=== PATIENT | female | born 1985 | race Caucasian/White ===

== ENCOUNTER 2023-05-08 20:40 | Inpatient (IN) | payer OTHER ==
[2023-05-08 22:40] LABS: BASO % 0.3 % (0-2.0); EOS % 0.9 % (0-4.5); HEMATOCRIT 35.2 % (32.4-45.2); HEMOGLOBIN 11.9 GM/dL (10.7-15.3); LYMPH % 26.5 % (8-40); MCH 29.2 pg (25.7-33.7); MCHC 33.7 g/dl (32.0-36.0); MEAN CELL VOLUME 86.5 fl (80-96); MEAN PLT VOLUME 10.7 fl (7.5-11.1); MONO % 6.4 % (3.8-10.2); NEUT % 65.9 % (42.8-82.8); PLATELET COUNT 251 10^3/uL (134-434); RBC 4.07 M/mm3 (3.60-5.2); RDW 14.2 % (11.6-15.6); WHITE BLOOD COUNT 14.8 K/mm3 (4.0-10.0)
[2023-05-08] MEDS ORDERED: ELECTROLYTE-148 SOLN 1,000 ML IV SCH (22:45)
[2023-05-08] MEDS ORDERED: OXYTOCIN 30 UNITS in 0.9% NS 30 UNIT/500 ML INFUS.BAG IVPB SCH (22:45)
[2023-05-08 22:54] LABS: INR 0.86 (0.83-1.09)
[2023-05-08 22:55] LABS: CALCIUM 8.5 mg/dL (8.5-10.1)
[2023-05-08 22:56] LABS: BLOOD UREA NITROGEN 9.9 mg/dL (7-18)
[2023-05-08 22:57] LABS: ACTIVATED PTT 22.2 SECONDS (25.2-36.5)
[2023-05-08 22:59] LABS: CREATININE 0.7 mg/dL (0.55-1.3)
[2023-05-08] MEDS ORDERED: NALOXONE HCL 0.4 MG/ML VIAL IVPUSH PRN (23:23)
[2023-05-08] MEDS ORDERED: BUPIVACAINE HCL/PF 0.25% (2.5MG/ML) 10 ML VIAL ONE ×2 (23:24→23:56)
[2023-05-08] MEDS ORDERED: FENTANYL CITRATE/PF 50 MCG/ML VIAL ONE (23:24)
[2023-05-08] MEDS ORDERED: FENTANYL/BUPIVACAINE/NS/PF - PCEA - 50 ML DISP.SYRIN EP SCH (23:30)
[2023-05-08] MEDS ORDERED: LIDOCAINE HCL 1% PRESERVATIVE FREE - 30ML VIAL ONE (23:38)
[2023-05-08] MEDS ORDERED: OXYTOCIN 20 UNITS in 0.9% NS 20 UNIT/1,000 ML INFUS.BAG IV ONE (23:38)
[2023-05-08] MEDS ORDERED: FENTANYL/BUPIVACAINE/NS/PF - PCEA - 50 ML DISP.SYRIN EP ONE (23:45)
[2023-05-09] MEDS ORDERED: BENZOCAINE 28 GM HEMORRHOIDAL OINTMENT TP PRN (00:02)
[2023-05-09] MEDS ORDERED: BENZOCAINE 20% 57 GM BOTTLE TP PRN (00:02)
[2023-05-09] MEDS ORDERED: ACETAMINOPHEN 325 MG TABLET (FP) PO PRN (00:02)
[2023-05-09] MEDS ORDERED: WITCH HAZEL 50% (TUCKS) 40 PAD/JAR PAD TP PRN (00:02)
[2023-05-09] MEDS ORDERED: BISACODYL 10 MG SUPP.RECT RC PRN (00:02)
[2023-05-09] MEDS ORDERED: METHYLERGONOVINE MALEATE 0.2 MG/1 ML AMP IM PRN (00:02)
[2023-05-09] MEDS ORDERED: OXYTOCIN 20 UNITS in 0.9% NS 20 UNIT/1,000 ML INFUS.BAG IV SCH (00:15)
[2023-05-09 00:24] VITALS: BMI 34.1
[2023-05-09] MEDS: IBUPROFEN 600 MG TABLET (FP) PO PRN ×5 (04:16→21:35)
[2023-05-09] MEDS ORDERED: FERROUS SO4 325 MG TABLET (FP) PO ONE (08:00)
[2023-05-09] MEDS: PRENATAL VITAMINS W/ FOLIC ACID TABLET (FP) PO SCH (09:35)
[2023-05-09 14:30] LABS: HIV INTERPRETATION NEGATIVE (NEGATIVE)
[2023-05-10] MEDS: oxyCODONE HCL 5 MG TABLET PO PRN ×3 (08:01→21:31)
[2023-05-10] MEDS: PRENATAL VITAMINS W/ FOLIC ACID TABLET (FP) PO SCH (09:11)
[2023-05-10 09:20] LABS: BASO % 0.4 % (0-2.0); EOS % 1.8 % (0-4.5); HEMATOCRIT 34.7 % (32.4-45.2); HEMOGLOBIN 11.1 GM/dL (10.7-15.3); LYMPH % 23.7 % (8-40); MCH 28.4 pg (25.7-33.7); MCHC 31.9 g/dl (32.0-36.0); MEAN CELL VOLUME 88.9 fl (80-96); MEAN PLT VOLUME 10.2 fl (7.5-11.1); MONO % 4.6 % (3.8-10.2); NEUT % 69.5 % (42.8-82.8); PLATELET COUNT 232 10^3/uL (134-434); RBC 3.91 M/mm3 (3.60-5.2); RDW 13.9 % (11.6-15.6)
[2023-05-10] MEDS: IBUPROFEN 600 MG TABLET (FP) PO PRN (16:27)
[2023-05-10] MEDS ORDERED: SENNOSIDES/DOCUSATE COMBO (SENNA PLUS) TABLET (UD) PO PRN (22:00)
[2023-05-11] MEDS: IBUPROFEN 600 MG TABLET (FP) PO PRN ×2 (01:39→07:48)
[2023-05-11 09:15] VITALS: BP 136/88; PULSE 85; RESP 16; TEMP 98.1
[2023-05-11] MEDS: PRENATAL VITAMINS W/ FOLIC ACID TABLET (FP) PO SCH (10:01)
== END 2023-05-11 11:50 | disposition home or self-care (01) | DRG 807 ==
LOC: JERBED 20:40 → EDSTATUS 22:03 → JLDR 22:22 → J3W 05-09 01:48
PROVIDERS: ADMIT Obstetrics & Gynecology; ATTEND Obstetrics & Gynecology
PROC: 10E0XZZ Delivery of Products of Conception, External Approach (ICD-10-PCS; principal; 2023-05-09)
PROC: 0W8NXZZ Division of Female Perineum, External Approach (ICD-10-PCS; 2023-05-09)
DX: O48.0 Post-term pregnancy (principal); Z37.0 Single live birth; O69.1XX0 Labor and delivery complicated by cord around neck, with compression, not applicable or unspecified; Z3A.40 40 weeks gestation of pregnancy
CPT/HCPCS: 36415; 80048; 85025; 85610; 85730; 86780; 86850; 86900; 86901; 87389